=== PATIENT | male | born 1965 | race Caucasian/White ===

== ENCOUNTER 2023-07-03 15:53 | Inpatient (IN) | payer BC ==
[2023-07-03] MEDS ORDERED: Sodium Chloride 0.9% 1,000 ML IV ONE (16:51)
[2023-07-03] MEDS ORDERED: Ketorolac 30 MG/ML SDV IVPUSH ONE (16:51)
[2023-07-03] MEDS ORDERED: Iopamidol 612 MG/ML 100 ML Bottle IV SCH (17:00)
[2023-07-03] MEDS ORDERED: Sodium Chloride 0.9% 50 ML IV ONE (17:00)
[2023-07-03] MEDS ORDERED: Sodium Chloride 0.9% 10 ML Syringe FLUSH ONE (17:00)
[2023-07-03 17:06] LABS: BASOPHILS ABSOLUTE AUTO 0.08 K/uL (0.00-0.10); BASOPHILS PERCENT AUTO 0.3 % (0.1-1.3); HEMATOCRIT 46.5 % (38.4-49.7); HEMOGLOBIN 16.3 g/dL (12.9-16.9); IMMATURE GRAN ABSOLUTE AUTO 0.09 K/uL (0.00-0.23); IMMATURE GRAN PERCENT AUTO 0.4 % (0.0-0.7); LYMPHOCYTES ABSOLUTE AUTO 2.42 K/uL (0.8-3.3); MEAN CORPUSCULAR HEMOGLOBIN 30.1 pg (31.6-35.5); MEAN CORPUSCULAR HGB CONC 35.1 g/dL (31.6-35.5); MONOCYTES ABSOLUTE AUTO 1.96 K/uL (0.20-0.90); MONOCYTES PERCENT AUTO 8.1 % (3.3-12.6); NEUTROPHILS ABSOLUTE AUTO 19.62 K/uL (1.0-7.6); NEUTROPHILS PERCENT AUTO 81.2 % (40.0-78.1); PLATELET COUNT,PLT 328 K/uL (130-375); RED BLOOD CELL COUNT 5.41 M/uL (4.14-5.76); WHITE BLOOD CELL COUNT,WBC 24.2 K/uL (3.2-11.0)
[2023-07-03 17:19] LABS: APPEARANCE,URINE CLEAR (CLEAR); BILIRUBIN,URINE NEGATIVE (NEGATIVE); COLOR,URINE YELLOW (YELLOW); GLUCOSE,URINE NEGATIVE (NEGATIVE); KETONES,URINE TRACE mg/dL (NEGATIVE); LEUKOCYTE ESTERASE,URINE NEGATIVE (NEGATIVE); NITRITE,URINE NEGATIVE (NEGATIVE); OCCULT BLOOD,URINE NEGATIVE (NEGATIVE); PROTEIN,URINE 30 mg/dL (NEGATIVE); UROBILINOGEN,URINE 0.2 EU/dL (0.2-1.0)
[2023-07-03 17:29] LABS: ALANINE AMINOTRANSFERASE,ALT 45 U/L (12-78); ALKALINE PHOSPHATASE 69 U/L (46-116); ANION GAP 15.6 mmol/L (5.0-14.0); ASPARTATE AMNIOTRANSFERASE,AST 23 U/L (15-37); BILIRUBIN TOTAL 1.3 mg/dL (0.2-1.0); BLOOD UREA NITROGEN,BUN 16 mg/dL (7-18); C-REACTIVE PROTEIN 11.21 mg/dL (0.0-0.3); CALCIUM 8.9 mg/dL (8.5-10.1); CARBON DIOXIDE,CO2 22 mmol/L (21-32); CHLORIDE,CL 102 mmol/L (100-108); ESTIMATED GFR 87 mL/min (>60); GLUCOSE RANDOM 119 mg/dL (74-106); POTASSIUM,K 3.6 mmol/L (3.6-5.2); SODIUM,NA 136 mmol/L (140-148)
[2023-07-03 17:34] LABS: AMORPHOUS SEDIMENT,URINE NOT SEEN; BACTERIA,URINE RARE; EPITHELIAL CELLS,URINE RARE; MUCUS,URINE MODERATE; RBC,URINE 0-5 (0-5)
[2023-07-03] MEDS ORDERED: Piperacillin/Tazobactam 3.375 GM in Sodium Chloride 0.9% 50 ML IV ONE (18:57)
[2023-07-03] MEDS ORDERED: HYDROmorphone 1 MG/ML Syringe IVPUSH ONE (19:50)
[2023-07-03] MEDS ORDERED: Naloxone 0.4 MG/ML SDV IVPUSH PRN (19:50)
[2023-07-03] MEDS ORDERED: LORazepam 2 MG/ML SDV IV PRN (20:43)
[2023-07-03] MEDS ORDERED: Ondansetron 4 MG/2 ML SDV IV PRN (20:43)
[2023-07-03] MEDS ORDERED: HYDROmorphone 1 MG/ML Syringe IVPUSH PRN (20:54)
[2023-07-03] MEDS ORDERED: Dextrose 5%-Lactated Ringers 1,000 ML IV SCH (21:00)
[2023-07-03] MEDS: Pantoprazole 40 MG Vial IV SCH (21:26)
[2023-07-04] MEDS ORDERED: Piperacillin/Tazobactam 3.375 GM in Sodium Chloride 0.9% 50 ML IV SCH (02:00)
[2023-07-04 04:53] LABS: BASOPHILS ABSOLUTE AUTO 0.06 K/uL (0.00-0.10); BASOPHILS PERCENT AUTO 0.4 % (0.1-1.3); EOSINOPHILS ABSOLUTE AUTO 0.08 K/uL (0.00-0.40); EOSINOPHILS PERCENT AUTO 0.6 % (0.0-5.4); HEMATOCRIT 38.7 % (38.4-49.7); HEMOGLOBIN 13.5 g/dL (12.9-16.9); IMMATURE GRAN ABSOLUTE AUTO 0.06 K/uL (0.00-0.23); IMMATURE GRAN PERCENT AUTO 0.4 % (0.0-0.7); LYMPHOCYTES ABSOLUTE AUTO 2.22 K/uL (0.8-3.3); LYMPHOCYTES PERCENT AUTO 15.3 % (11.4-47.7); MEAN CORPUSCULAR HEMOGLOBIN 30.5 pg (31.6-35.5); MEAN CORPUSCULAR HGB CONC 34.9 g/dL (31.6-35.5); MEAN CORPUSCULAR VOLUME 87.4 fL (81.4-99.0); MONOCYTES ABSOLUTE AUTO 0.95 K/uL (0.20-0.90); MONOCYTES PERCENT AUTO 6.6 % (3.3-12.6); NEUTROPHILS ABSOLUTE AUTO 11.13 K/uL (1.0-7.6); NEUTROPHILS PERCENT AUTO 76.7 % (40.0-78.1); PLATELET COUNT,PLT 229 K/uL (130-375); RED BLOOD CELL COUNT 4.43 M/uL (4.14-5.76); WHITE BLOOD CELL COUNT,WBC 14.5 K/uL (3.2-11.0)
[2023-07-04 05:18] LABS: C-REACTIVE PROTEIN 14.65 mg/dL (0.0-0.3); CALCIUM 8.1 mg/dL (8.5-10.1); CREATININE 1.1 mg/dL (0.8-1.3); EST CRCL DRUG DOSING (CG) 79.36 mL/min; MAGNESIUM 1.9 mg/dL (1.8-2.4); POTASSIUM,K 3.9 mmol/L (3.6-5.2)
[2023-07-04 05:20] LABS: ANION GAP 10.9 mmol/L (5.0-14.0)
[2023-07-04] MEDS: Pantoprazole 40 MG Vial IV SCH (08:14)
[2023-07-04] MEDS: Piperacillin/Tazobactam/Dext 3.375 GM in Premix Bag 1 BAG IV SCH ×3 (08:14→20:18)
[2023-07-04] MEDS ORDERED: oxyCODONE 5 MG Tab PO PRN (11:56)
[2023-07-04] MEDS: Lactated Ringers 1,000 ML IV SCH (13:37)
[2023-07-04] MEDS: Ibuprofen 600 MG Tab PO PRN (18:36)
[2023-07-05] MEDS: Lactated Ringers 1,000 ML IV SCH
[2023-07-05] MEDS: Piperacillin/Tazobactam/Dext 3.375 GM in Premix Bag 1 BAG IV SCH ×2 (02:06→08:31)
[2023-07-05 05:10] LABS: BASOPHILS ABSOLUTE AUTO 0.05 K/uL (0.00-0.10); BASOPHILS PERCENT AUTO 0.5 % (0.1-1.3); EOSINOPHILS ABSOLUTE AUTO 0.19 K/uL (0.00-0.40); EOSINOPHILS PERCENT AUTO 1.8 % (0.0-5.4); HEMATOCRIT 38.8 % (38.4-49.7); HEMOGLOBIN 13.2 g/dL (12.9-16.9); IMMATURE GRAN ABSOLUTE AUTO 0.03 K/uL (0.00-0.23); IMMATURE GRAN PERCENT AUTO 0.3 % (0.0-0.7); LYMPHOCYTES ABSOLUTE AUTO 2.21 K/uL (0.8-3.3); MEAN CORPUSCULAR HEMOGLOBIN 30.3 pg (31.6-35.5); MONOCYTES PERCENT AUTO 9.5 % (3.3-12.6); NEUTROPHILS ABSOLUTE AUTO 7.05 K/uL (1.0-7.6); NEUTROPHILS PERCENT AUTO 66.9 % (40.0-78.1); PLATELET COUNT,PLT 237 K/uL (130-375); RED BLOOD CELL COUNT 4.36 M/uL (4.14-5.76); WHITE BLOOD CELL COUNT,WBC 10.5 K/uL (3.2-11.0)
[2023-07-05 05:21] LABS: CALCIUM 8.3 mg/dL (8.5-10.1); CREATININE 1.2 mg/dL (0.8-1.3); EST CRCL DRUG DOSING (CG) 72.75 mL/min; POTASSIUM,K 3.8 mmol/L (3.6-5.2)
[2023-07-05] MEDS ORDERED: Pantoprazole 40 MG Tab.CR PO SCH (07:30)
[2023-07-05] MEDS: Ibuprofen 600 MG Tab PO PRN (08:31)
== END 2023-07-05 11:45 | disposition home or self-care (01) | DRG 244 ==
LOC: JP.ED 15:53 → JP.2SS 19:47
PROVIDERS: ADMIT Internal Medicine; ATTEND Internal Medicine
DX: K57.32 Diverticulitis of large intestine without perforation or abscess without bleeding (principal); Z20.822 Contact with and (suspected) exposure to COVID-19; K21.9 Gastro-esophageal reflux disease without esophagitis; Z90.49 Acquired absence of other specified parts of digestive tract; Z87.891 Personal history of nicotine dependence
CPT/HCPCS: 36415; 74177; 80048; 80053; 81001; 83605; 83735; 85025; 86140; 96361; 96365; 96375; 99285-25; A9270-GY; C9113; J1170; J1885; J2543; J3490; J7030; J7120; J7121; Q9967; U0002

== ENCOUNTER 2023-10-09 06:50 | Day surgery (SDC) | payer BC ==
[2023-10-09] MEDS ORDERED: Propofol 200 MG/20 ML SDV ONE (07:14)
[2023-10-09] MEDS ORDERED: Midazolam 1 MG/ML 2 ML SDV ONE (07:14)
[2023-10-09] MEDS ORDERED: fentaNYL 50 MCG/ML SDV ONE (07:14)
[2023-10-09] MEDS ORDERED: Lactated Ringers 1,000 ML IV SCH (08:00)
== END 2023-10-09 10:10 | disposition home or self-care (01) ==
LOC: JP.SDS 06:50
PROVIDERS: ATTEND Student in an Organized Health Care Education/Training Program
DX: K57.30 Diverticulosis of large intestine without perforation or abscess without bleeding (principal); Z87.19 Personal history of other diseases of the digestive system
CPT/HCPCS: J2250; J2704; J3010; J7120